=== PATIENT | female | born 1965 | race Caucasian/White ===

== ENCOUNTER 2017-05-25 11:02 | Outpatient (CLI) | payer BC ==
--- NOTE | 2017-05-25 18:37 | Diagnostic Imaging Report ---
JOÃO JOHNSON [facility] [id number] [facility] [address] 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 No evidence for fracture or dislocation. No soft tissue abnormality. Impression: No acute osseous process. If suspect soft tissue abnormality, consider obtaining MRI to further evaluate. Electronically signed on May 25, 2017 12:02:07 PM CDT by: Willem MURPHY
== END 2017-05-25 11:04 ==
LOC: RAD 11:02
PROVIDERS: ATTEND Family Medicine
DX: M25.511 Pain in right shoulder (principal)
CPT/HCPCS: 73030